=== PATIENT | male | born 1965 ===

== ENCOUNTER 2024-10-11 08:28 | Emergency (ER) | payer MEDICARE, MEDICAID ==
[~2024-10-11 08:28] MED LIST: Sodium Chloride 0.9% 10 ML Syringe FLUSH PRN
[2024-10-11 08:58] LABS: HEMATOCRIT 49.6 % (40.0-54.0); HEMOGLOBIN 17.2 g/dL (14.0-18.0); MEAN CORPUSCULAR HEMOGLOBIN 32.5 pg (27.0-34.0); MEAN CORPUSCULAR HGB CONC 34.7 g/dL (33.0-35.0); MEAN CORPUSCULAR VOLUME 93.8 fL (80-100); PLATELET COUNT,PLT 192 10^3/uL (150-450); RED BLOOD CELL COUNT 5.29 10^6/uL (4.6-6.2); WHITE BLOOD CELL COUNT,WBC 8.4 10^3/uL (5.0-10.0)
[2024-10-11 09:06] LABS: BASOPHILS PERCENT AUTO 0.6 % (0.0-1.0); EOSINOPHILS PERCENT AUTO 1.3 % (1.0-3.0); LYMPHOCYTES PERCENT AUTO 18.5 % (20.5-50.1); MONOCYTES PERCENT AUTO 8.3 % (2-8); NEUTROPHILS PERCENT AUTO 71.3 % (42.2-75.2)
[2024-10-11 09:12] LABS: LYMPHOCYTES PERCENT MAN 21 % (20-50); MONOCYTES PERCENT MAN 10 % (2-8); SEG NEUTROPHILS PERCENT MAN 69 % (42-75)
[2024-10-11 09:31] LABS: ALANINE AMINOTRANSFERASE,ALT 58 U/L (16-63); ALKALINE PHOSPHATASE 100 U/L (46-116); ASPARTATE AMNIOTRANSFERASE,AST 31 U/L (15-37); BILIRUBIN TOTAL 0.6 mg/dL (0.2-1.0); BLOOD UREA NITROGEN,BUN 18 mg/dL (7-18); BUN/CREATININE RATIO 13.3 (No establ ref range); CALCIUM 9.9 mg/dL (8.5-10.1); CARBON DIOXIDE,CO2 24 mmol/L (21-32); CHLORIDE,CL 105 mmol/L (98-107); CREATININE 1.35 mg/dL (0.70-1.30); EST CRCL DRUG DOSING (CG) 54.48 mL/min; GLUCOSE RANDOM 120 mg/dL (70-99); MAGNESIUM 2.3 mg/dL (1.8-2.4); SODIUM,NA 139 mmol/L (136-145)
[2024-10-11 09:32] LABS: ESTIMATED GFR 61 mL/min (>=60)
[2024-10-11] MEDS: Ondansetron 4 MG/2 ML SDV IVPUSH ONE (09:39)
== END 2024-10-11 09:53 | disposition home or self-care (01) ==
LOC: DL.ED 08:28
DX: B34.9 Viral infection, unspecified (principal)
CPT/HCPCS: 36415; 80053; 83735; 84484; 85025; 86140; 87428; 93005; 93010; 96374; 99283; 99285; J2405